=== PATIENT | male | born 1960 | race African-American/Black ===

== ENCOUNTER 2018-09-16 00:30 | Observation (INO) | payer MEDICARE, MEDICAID ==
[~2018-09-16 00:30] MED LIST: CITA10TA8 PO; QUET25TA5 PO; TRAZ50TA66 PO
[2018-09-16 00:32] VITALS: BP 120/74
[2018-09-16 01:14] LABS: BASOPHILS # (AUTO) 0.02 x10^3/uL (0-0.1); BASOPHILS % (AUTO) 0 % (0-1); EOSINOPHILS # (AUTO) 0.16 x10^3/uL (0-0.4); EOSINOPHILS % (AUTO) 2 % (1-7); LYMPHOCYTES # (AUTO) 1.91 x10^3/uL (1-3.4); LYMPHOCYTES % (AUTO) 27 % (22-44); MD NO; MEAN CORPUSCULAR HEMOGLOBIN 31.2 pg (27.5-34.5); MEAN CORPUSCULAR HGB CONC 33.5 g/dL (33.2-36.2); MEAN CORPUSCULAR VOLUME 93.2 fL (81-97); MEAN PLATELET VOLUME 8.5 fL (7.4-10.4); MONOCYTES # (AUTO) 0.34 x10^3/uL (0.2-0.8); MONOCYTES % (AUTO) 5 % (2-9); NEUTROPHILS % (AUTO) 67 % (42-75); PLATELET COUNT 282 x10^3/uL (130-400); RED BLOOD COUNT 5.18 x10^6/uL (4.38-5.82); RED CELL DISTRIBUTION WIDTH 14.3 % (9.4-14.8)
[2018-09-16 01:26] LABS: ALBUMIN 3.8 g/dL (3.4-5.0); ANION GAP 7 mmol/L (5-15); CALCIUM 8.6 mg/dL (8.5-10.1); CHLORIDE 110 mmol/L (98-107); CREATININE 1.17 mg/dL (0.7-1.3); SALICYLATE LEVEL 2.2 mg/dL (2.8-20.0)
[2018-09-16 01:29] LABS: ACETAMINOPHEN < 2 mcg/mL (10-30)
[2018-09-16 02:34] LABS: AMPHETAMINE SCREEN, URINE Negative (Negative); BARBITURATE SCREEN, URINE Negative (Negative); BENZODIAZEPINE SCREEN, URINE Negative (Negative); CANNABINOID SCREEN, URINE Negative (Negative); COCAINE SCREEN, URINE Negative (Negative); METHADONE SCREEN, URINE Negative (Negative); OPIATE SCREEN, URINE Negative (Negative)
[2018-09-16] MEDS ORDERED: ZIPRASIDONE 20MG CAPSULE ONE (04:17)
[2018-09-16] MEDS ORDERED: ZIPRASIDONE 20MG CAPSULE PO ONE (04:30)
[2018-09-16] MEDS ORDERED: ZIPRASIDONE 20 MG INJ IM PRN (05:30)
[2018-09-16] MEDS ORDERED: POLYETHYLENE GLYCOL 17 GM PACKET PO PRN (05:30)
[2018-09-16] MEDS ORDERED: ONDANSETRON ODT 4 MG PO PRN (05:30)
[2018-09-16] MEDS ORDERED: ACETAMINOPHEN 325 MG TABLET PO PRN (05:30)
[2018-09-16] MEDS ORDERED: QUETIAPINE 100MG TABLET PO SCH (21:00)
== END 2018-09-16 08:00 ==
LOC: ED 02:10 → INTOOBSV 03:34 → EDIP 03:34
PROVIDERS: ADMIT Hospitalist; ATTEND Hospitalist
DX: R45.851 Suicidal ideations (principal); F22 Delusional disorders; F15.90 Other stimulant use, unspecified, uncomplicated; F20.9 Schizophrenia, unspecified; F31.9 Bipolar disorder, unspecified; Z59.0 Homelessness; Z87.891 Personal history of nicotine dependence; Z91.5 Personal history of self-harm
CPT/HCPCS: 36415; 80048; 80307; 80329; 82040; 85025; 99284; G0378; G0480

== ENCOUNTER 2019-02-26 10:41 | Emergency (ER) | payer MEDICARE, MEDICAID ==
[~2019-02-26] VITALS: Ht 175.3 cm; Wt 67.0 kg
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
[2019-02-26] MEDS ORDERED: CEFAZOLIN 1,000 MG ONE (11:00)
[2019-02-26] MEDS ORDERED: PLEASE ENTER HEIGHT AND WEIGHT MC SCH (11:00)
[2019-02-26] MEDS ORDERED: DIPH,PERTUSS(ACELL),TET VAC/PF 0.5 ML IM-VACC ONE ×2 (11:00)
[2019-02-26] MEDS ORDERED: CEFAZOLIN 1,000 MG IM ONE (11:00)
--- NOTE | 2019-02-26 11:07 | NUR ---
ALL WOUND CLEANSED WITH NORMAL SALINE, BACITRACIN APPLIED AND BANDANGED
--- NOTE | 2019-02-26 11:29 | NUR ---
AFTER SCANNING MEDICATIONS PATIENT REFUSED. PROVIDER MADE AWARE-NO NEED TO FORCE PATIENT TO TAKE MEDICINES AT THIS TIME. PIECE GOODS CLERK WAS ABLE TO GET PATIENT TO DRINK 500ML OF BOTTLED WATER OFFICERS INFORMED THAT PATIENT WOULD NEED TO BE FREQUENTLY MONITORED, TAKE PRESCRIBED ORAL ANTIBIOTICS (LACS), DRINK PLENTY OF WATER/LIMIT STRESS AND STAY COOL TODAY PATIENT REFUSED TO SIGN D/C PAPERWORK. AMBULATED W/ OFFICERS TO SQUAD CAR FOR TRANSFER TO NURSING HOME
[2019-02-26 11:32] VITALS: BP 132/78
== END 2019-02-26 11:34 | disposition home or self-care (01) ==
LOC: ED 11:28
DX: S31.825A Open bite of left buttock, initial encounter (principal); S31.815A Open bite of right buttock, initial encounter; S00.81XA Abrasion of other part of head, initial encounter; S00.212A Abrasion of left eyelid and periocular area, initial encounter; S30.810A Abrasion of lower back and pelvis, initial encounter; S40.211A Abrasion of right shoulder, initial encounter; F15.10 Other stimulant abuse, uncomplicated; W54.0XXA Bitten by dog, initial encounter; Y93.89 Activity, other specified; Y92.89 Other specified places as the place of occurrence of the external cause; Y99.8 Other external cause status
CPT/HCPCS: 90715; 99283; J0690

== ENCOUNTER 2020-02-02 11:59 | Emergency (ER) | payer MEDICARE, MEDICAID ==
[~2020-02-02] VITALS: Ht 180.3 cm; Wt 72.0 kg
[2020-02-02 12:11] VITALS: BP 120/80
--- NOTE | 2020-02-02 12:18 | NUR ---
MEDICAL ADMINISTRATOR: LIZETT REQUESTED WITH HOUSE SUP/NURSING OPS AT THIS TIME. PRIMARY SOPHIA VIEYRA AWARE. PRIMARY SOPHIA VIEYRA TO MONITOR PT FOR CONTINUOUS SAFETY OBSERVATION. PT IN MONITORED ROOM FOR SAFETY WELL
--- NOTE | 2020-02-02 12:18 | NUR ---
BIB [facility]. PT WITH HX SCHIZ. PT WITH SI TODAY. PT STATES "IM HEARING VOICES THEY ARE TELLING ME TO HURT OTHER PEOPLE SO I WANT TO KILL MYSELF" "IM GOING TO DRINK RADIATOR FLUID. PT PLACED IN SECURE RM AT THIS TIME, CHARGE MADE AWARE OF NEED FOR SITTER. ALL BELONGINGS REMOVED AND PLACED IN LOCKER. BELONGINGS INCLUDE GARCIA DUFFLE BAG, LARGE BLACK AND YELLOW TOTE AND BAG OF CLOTHES AND SHOES, ALL ARE LABELED
--- NOTE | 2020-02-02 12:48 | NUR ---
PATIENT REFUSED BREATHALYZER
[2020-02-02] MEDS ORDERED: LORazepam 1MG TABLET PO ONE (13:00)
[2020-02-02 13:05] LABS: BASOPHILS # (AUTO) 0.02 x10^3/uL (0-0.1); BASOPHILS % (AUTO) 0 % (0-1); EOSINOPHILS # (AUTO) 0.08 x10^3/uL (0-0.4); EOSINOPHILS % (AUTO) 1 % (1-7); LYMPHOCYTES # (AUTO) 0.88 x10^3/uL (1-3.4); LYMPHOCYTES % (AUTO) 15 % (22-44); MD NO; MEAN CORPUSCULAR HEMOGLOBIN 30.7 pg (27.5-34.5); MEAN CORPUSCULAR HGB CONC 33.1 g/dL (33.2-36.2); MEAN CORPUSCULAR VOLUME 92.7 fL (81-97); MEAN PLATELET VOLUME 8.3 fL (7.4-10.4); MONOCYTES # (AUTO) 0.23 x10^3/uL (0.2-0.8); MONOCYTES % (AUTO) 4 % (2-9); NEUTROPHILS # (AUTO) 4.86 x10^3/uL (1.8-6.8); NEUTROPHILS % (AUTO) 80 % (42-75); PLATELET COUNT 280 x10^3/uL (130-400); RED BLOOD COUNT 5.39 x10^6/uL (4.38-5.82); RED CELL DISTRIBUTION WIDTH 14.1 % (9.4-14.8)
[2020-02-02 13:15] LABS: ALANINE AMINOTRANSFERASE 26 U/L (12-78); ALBUMIN 3.7 g/dL (3.4-5.0); ANION GAP 4 mmol/L (5-15); CALCIUM 8.9 mg/dL (8.5-10.1); CHLORIDE 111 mmol/L (98-107); CREATININE 1.36 mg/dL (0.7-1.3); SALICYLATE LEVEL 2.8 mg/dL (2.8-20.0)
[2020-02-02 13:17] LABS: ALKALINE PHOSPHATASE 67 U/L (45-117); BILIRUBIN,TOTAL 0.9 mg/dL (0.2-1.0); TOTAL PROTEIN 7.2 g/dL (6.4-8.2)
--- NOTE | 2020-02-02 14:20 | NUR ---
BREAK RN NOTE: PT SPEAKING WITH MARCY KULKARNI AT THIS TIME.
--- NOTE | 2020-02-02 14:32 | NUR ---
urine collected and sent to lab. warm blankets provided. pt a&o, resps even and unlabored. room secure. sitter monitoring from [facility] for safety. pt has no complaint at this time.
--- NOTE | 2020-02-02 14:46 | NUR ---
REPORT GIVEN BACK TO PRIMARY SOPHIA VIEYRA.
[2020-02-02 14:48] LABS: AMPHETAMINE SCREEN, URINE Positive (Negative); BARBITURATE SCREEN, URINE Negative (Negative); BENZODIAZEPINE SCREEN, URINE Negative (Negative); CANNABINOID SCREEN, URINE Negative (Negative); COCAINE SCREEN, URINE Negative (Negative); METHADONE SCREEN, URINE Negative (Negative); OPIATE SCREEN, URINE Negative (Negative)
--- NOTE | 2020-02-02 15:16 | NUR ---
PT RESTING AT THIS TIME, VISIBLE CHEST RISE AND FALL NOTED, PT DECLINED NEED FOR ORDERED ATIVAN AT THIS TIME, PSYCH CONTINUOUS IMPROVEMENT ANALYST CAYLA HERE PREVIOUSLY, ORDERS RECIEVED
--- NOTE | 2020-02-02 15:28 | NUR ---
REPORT GIVEN TO VIKTORIA CORTES
[2020-02-02] MEDS ORDERED: OLANZAPINE 10 MG TABLET PO ONE (21:00)
[2020-02-02] MEDS ORDERED: QUETIAPINE 100MG TABLET PO ONE (21:00)
== END 2020-02-02 16:15 ==
LOC: ED 12:22
DX: R45.851 Suicidal ideations (principal); R44.0 Auditory hallucinations; F17.200 Nicotine dependence, unspecified, uncomplicated; F15.90 Other stimulant use, unspecified, uncomplicated
CPT/HCPCS: 36415; 80053; 80307; 85025; 99285